=== PATIENT | female | born 1995 | race Caucasian/White ===

== ENCOUNTER 2023-05-20 08:00 | Outpatient (CLI) | payer BC, OTHER ==
[2023-05-20 17:25] LABS: BILIRUBIN,URINE NEGATIVE (NEGATIVE); GLUCOSE, URINE (UA) NEGATIVE (NEGATIVE); KETONES,URINE (UA) NEGATIVE (NEGATIVE); LEUKOCYTE ESTERASE, URINE NEGATIVE (NEGATIVE); NITRITE,URINE NEGATIVE (NEGATIVE); OCCULT BLOOD,URINE NEGATIVE (NEGATIVE); PH,URINE 7.5 PH (5.0-7.5); PROTEIN,URINE NEGATIVE (NEGATIVE); UROBILINOGEN,URINE 0.2 (NORMAL) E.U./dL (NORMAL)
[2023-05-20 17:32] LABS: CLARITY,URINE CLEAR (CLEAR)
[2023-05-20 17:45] LABS: BACTERIA,URINE None Seen /HPF (None Seen); RBC,URINE None Seen /HPF (0-5); SQUAMOUS EPITHELIAL CELL,UR RARE Squamous (<= Few); WBC,URINE 0-3 /HPF (0-5)
== END 2023-05-20 23:59 | disposition home or self-care (01) ==
LOC: LAB.WC 08:00
PROVIDERS: ATTEND Obstetrics & Gynecology
DX: Z34.00 Encounter for supervision of normal first pregnancy, unspecified trimester (principal)
CPT/HCPCS: 81001; 87086

== ENCOUNTER 2023-06-05 11:46 | Outpatient (CLI) | payer OTHER ==
--- NOTE | 2023-06-05 16:08 | Ultrasound Report ---
PROCEDURE: OB 1st Trimester INDICATIONS: POSITIVE TEST OUTSIDE/PRIOR DATING DATA: Last menstrual period (LMP): 04/08/2023. LMP-based estimated date of delivery (GUERRERO): 01/13/2024. First dating scan (date and location): 06/05/2023. Estimated date of delivery (GUERRERO) from first dating scan: 01/13/2024. TECHNIQUE: Real-time scanning was performed of the fetus and maternal pelvic organs, with image documentation. COMPARISON: None. FINDINGS: Intrauterine gestational sac present. Embryo: Single living intrauterine gestation with estimated sonographic gestational age of approxima tely 8 weeks and 2 days based off crown-rump length measurement of approximately 1.77 cm. Heart rate: 162 bpm. Other: Small perigestational fluid collection. Normal yolk sac. Measurement variability in dating: +/- 4 weeks by LMP, +/- 7 days by mean sac diameter (use before 6 weeks gestation if crown-rump length not able to be measured), +/- 5 days by crown-rump length (6-12 weeks gestation). Maternal organs: Ovaries appear within normal limits. There is a right corpus luteal cyst measuring 1.5 cm. Maternal cervix appears long and closed. IMPRESSION: Single living intrauterine gestation with estimated sonographic gestational age of approximately 8 we eks and 2 days based off crown-rump length measurement. Estimated date of delivery is approximately . Small perigestational hemorrhage. Reviewed by: Paulino Hatch MD on 06/05/2023 4:07 PM PDT Approved by: Paulino Hatch MD on 06/05/2023 4:07 PM PDT Station ID: [id number]
== END 2023-06-05 11:47 | disposition home or self-care (01) ==
LOC: DI 11:46
PROVIDERS: ATTEND Obstetrics & Gynecology
DX: O20.8 Other hemorrhage in early pregnancy (principal); Z3A.08 8 weeks gestation of pregnancy

== ENCOUNTER 2023-07-01 12:06 | Outpatient (CLI) | payer OTHER ==
[2023-07-01 13:13] LABS: ALBUMIN 3.8 g/dL (3.2-5.5); ALBUMIN/GLOBULIN RATIO 1.5 (1.0-2.2); BILIRUBIN,TOTAL 0.4 mg/dL (0.2-1.0); CALCIUM 9.4 mg/dL (8.5-10.3); CREATININE 0.5 mg/dL (0.6-1.3); POTASSIUM 3.7 mmol/L (3.5-4.5); TOTAL PROTEIN 6.3 g/dL (6.4-8.9)
[2023-07-01 18:52] LABS: CHLAMYDIA TRACHOMATIS DNA NEGATIVE (NEGATIVE); NEISSERIA GONORRHOEAE DNA NEGATIVE (NEGATIVE); TRICHOMONAS VAGINALIS DNA NEGATIVE (NEGATIVE)
== END 2023-07-01 12:07 | disposition home or self-care (01) ==
LOC: LAB 12:06
PROVIDERS: ATTEND Obstetrics & Gynecology
DX: Z34.00 Encounter for supervision of normal first pregnancy, unspecified trimester (principal); Z36.9 Encounter for antenatal screening, unspecified; Z3A.12 12 weeks gestation of pregnancy
CPT/HCPCS: 36415; 80053; 87491; 87591; 87661

== ENCOUNTER 2023-07-29 16:26 | Outpatient (CLI) | payer OTHER ==
[2023-07-29 16:43] LABS: BASOPHILS % (AUTO) 0.2 %; EOSINOPHILS # (AUTO) 0.3 10^3/uL (0.0-0.7); EOSINOPHILS % (AUTO) 2.2 %; HCT - HEMATOCRIT 38.4 % (37.0-47.0); HGB - HEMOGLOBIN 13.3 g/dL (12.0-16.0); LYMPHOCYTES # (AUTO) 2.7 10^3/uL (1.5-3.5); LYMPHOCYTES % (AUTO) 23.4 %; MEAN CORPUSCULAR HGB CONC 34.6 g/dL (32.0-36.0); MEAN CORPUSCULAR VOLUME 92.3 fL (81.0-99.0); MONOCYTES # (AUTO) 0.9 10^3/uL (0.0-1.0); MONOCYTES % (AUTO) 7.7 %; NEUTROPHILS # (AUTO) 7.5 10^3/uL (1.5-6.6); NEUTROPHILS % (AUTO) 66.1 %; PLT - PLATELET COUNT 243 10^3/uL (130-450); RED BLOOD COUNT 4.16 10^6/uL (4.20-5.40); RED CELL DISTRIBUTION WIDTH 12.7 % (12.0-15.0); WHITE BLOOD COUNT 11.4 x10^3/uL (4.8-10.8)
[2023-07-30 08:10] LABS: RPR Non Reactive (Non Reactive)
[2023-07-30 10:09] LABS: VARICELLA-ZOSTER AB IGG 784 index (Immune >165)
[2023-07-30 11:11] LABS: HBsAG SCREEN Negative (Negative)
== END 2023-07-29 16:27 | disposition home or self-care (01) ==
LOC: LAB 16:26
PROVIDERS: ATTEND Obstetrics & Gynecology
DX: Z34.00 Encounter for supervision of normal first pregnancy, unspecified trimester (principal); Z36.89 Encounter for other specified antenatal screening; Z36.0 Encounter for antenatal screening for chromosomal anomalies
CPT/HCPCS: 36415; 82105; 85025; 86592; 86762; 86787; 86803; 86850; 86900; 86901; 87340; 87389

== ENCOUNTER 2023-08-27 14:58 | Outpatient (CLI) | payer OTHER ==
--- NOTE | 2023-08-27 21:45 | Ultrasound Report ---
PROCEDURE: OB Anatomy Scan INDICATIONS: SUPERVISION OF OUTSIDE/PRIOR DATING DATA: Last menstrual period (LMP): 04/08/2023. LMP-based estimated date of delivery (GUERRERO): 01/13/2024. First dating scan (date and location): 06/05/2023. Estimated date of delivery (GUERRERO) from first dating scan: 01/13/2024. TECHNIQUE: Real-time scanning was performed of the fetus, with image documentation and biometric measurements. Endovaginal scanning: Not performed. COMPARISON: 06/05/2023 FINDINGS: General: A single living intrauterine gestation is present. Presentation: Breech Placenta: Placental position is fundal, without previa. Amniotic fluid index: 12.8 cm, within normal limits for gestational age. Largest pocket measured 5. 0 cm heart rate: 140 beats per minute. Maternal cervical canal: 3.5 cm long; normal length is 2.5 cm or more. biometrics: Biparietal diameter: 4.94 cm: 21 weeks and 0 days (81st percentile) Head circumference: 18.52 cm: 20 weeks and 6 days (75th percentile) Abdominal circumference: 15.86 cm: 21 weeks and 0 days (73rd percentile) Femur length: 3.26 cm: 20 weeks and 1 day (43rd percentile) Estimated gestational age from initial scan: 20 weeks and 1 day Composite gestational age from present scan: 20 weeks and 4 days Estimated weight and percentile: 368 g which correlates with the 74th percentile for gestation al age. Measurement variability in biometric dating: +/- 10 days from 12-20 weeks gestation, +/- 2 weeks from 20-30 weeks gestation, +/- 3 weeks at 30 weeks gestation or later. Anatomic survey: Neuro: Ventricles are normal at less than 10 mm. Cisterna magna is normal at 3-11 mm. Cerebellum i s normal in size and morphology. Nuchal skin fold: Normal at less than 6 mm between 14 and 20 weeks gestational age. Face: Nose and lips, facial profile are normal. Spine: No evidence for spina bifida. Heart: 4-chambered heart is present, with normal ventricular outflow tracts. Diaphragm: Diaphragm is intact. Stomach: Left-sided stomach is present. Kidneys: No hydronephrosis. Normal is less than 5 mm in 2nd trimester, less than 7 mm in 3rd trimester. Cord: 3 vessel cord has orthotopic insertion. Bladder: Normal in size. Extremities: All 4 extremities are visualized. IMPRESSION: Single living intrauterine gestation with estimated sonographic gestational age of approximately 20 w eeks and 4 days versus approximately 20 weeks and 1 day by initial ultrasound. Normal interval growth has occurred. Estimated weight of approximately 368 g which correlates with the 74th percentil e for gestational age. Normal second trimester anatomy screening survey. Reviewed by: Paulino Ennis MD on 08/27/2023 9:43 PM PDT Approved by: Paulino Ennis MD on 08/27/2023 9:43 PM PDT Station ID: [id number]
== END 2023-08-27 14:59 | disposition home or self-care (01) ==
LOC: DI 14:58
PROVIDERS: ATTEND Obstetrics & Gynecology
DX: Z34.02 Encounter for supervision of normal first pregnancy, second trimester (principal)

== ENCOUNTER 2023-09-30 08:05 | Outpatient (CLI) | payer OTHER | END 2023-09-30 08:06 | disposition home or self-care (01) | LOC: LAB.S 08:05 | PROVIDERS: ATTEND Obstetrics & Gynecology | DX: Z34.00 Encounter for supervision of normal first pregnancy, unspecified trimester (principal) ==

== ENCOUNTER 2023-10-02 08:22 | Outpatient (CLI) | payer OTHER ==
[2023-10-02 09:32] LABS: HCT - HEMATOCRIT 36.5 % (37.0-47.0); HGB - HEMOGLOBIN 12.4 g/dL (12.0-16.0); MEAN CORPUSCULAR HEMOGLOBIN 32.9 pg (27.0-31.0); MEAN CORPUSCULAR VOLUME 96.8 fL (81.0-99.0); RED BLOOD COUNT 3.77 10^6/uL (4.20-5.40); RED CELL DISTRIBUTION WIDTH 13.1 % (12.0-15.0); WHITE BLOOD COUNT 10.9 x10^3/uL (4.8-10.8)
== END 2023-10-02 08:23 | disposition home or self-care (01) ==
LOC: LAB 08:22
PROVIDERS: ATTEND Obstetrics & Gynecology
DX: Z34.00 Encounter for supervision of normal first pregnancy, unspecified trimester (principal)
CPT/HCPCS: 36415; 82950; 85027

== ENCOUNTER 2023-11-13 16:08 | Outpatient (CLI) | payer OTHER ==
--- NOTE | 2023-11-13 21:25 | Ultrasound Report ---
PROCEDURE: OB Follow up INDICATIONS: EXCESSIVE WEIGHT GAIN IN OUTSIDE/PRIOR DATING DATA: Last menstrual period (LMP): 04/08/2023. LMP-based estimated date of delivery (GUERRERO): 01/13/2024. First dating scan (date and location): 06/05/2023. Estimated date of delivery (GUERRERO) from first dating scan: 01/13/2024. The below data below was generated using the ultrasound GUERRERO of 01/13/2024 TECHNIQUE: Real-time scanning was performed of the fetus, with image documentation and biometric measurements. Endovaginal scanning: Not performed. COMPARISON: 08/27/2023 FINDINGS: General: A single living intrauterine gestation is present. Presentation: Vertex Placenta: Placental position is fundal, without previa. Amniotic fluid index: 14.3 cm, 49 percentile for gestational age. heart rate: 140 beats per minute. Maternal cervical canal: 4.7 cm long; normal length is 2.5 cm or more. biometrics: Biparietal diameter: 8.28 cm, 33 weeks 2 days, 91 percentile Head circumference: 30.7 cm, 34 weeks 2 days, 88 percentile Abdominal circumference: 28.6 cm, 32 weeks 5 days, 84 percentile Femur length: 5.76 cm, 30 weeks 1 day, 11 percentile Estimated gestational age from initial scan: 31 weeks 2 days Composite gestational age from present scan: 32 weeks 4 days Estimated weight and percentile: 1908 g, 67th percentile Measurement variability in biometric dating: +/- 10 days from 12-20 weeks gestation, +/- 2 weeks from 20-30 weeks gestation, +/- 3 weeks at 30 weeks gestation or more. Other: Not applicable. IMPRESSION: Single living intrauterine at 31 weeks 2 days, GUERRERO of 01/13/2024. Estimated weight of 1908 g, 67th percentile. Reviewed by: Ramsey Yao MD on 11/13/2023 9:24 PM PDT Approved by: Ramsey Yao MD on 11/13/2023 9:24 PM PDT Station ID: [id number]
== END 2023-11-13 16:09 | disposition home or self-care (01) ==
LOC: DI 16:08
PROVIDERS: ATTEND Obstetrics & Gynecology
DX: O26.03 Excessive weight gain in pregnancy, third trimester (principal); Z3A.31 31 weeks gestation of pregnancy

== ENCOUNTER 2023-12-25 15:11 | Inpatient (IN) ==
[2023-12-25 15:55] LABS: BASOPHILS % (AUTO) 0.2 %; EOSINOPHILS # (AUTO) 0.3 10^3/uL (0.0-0.7); EOSINOPHILS % (AUTO) 2.2 %; HCT - HEMATOCRIT 40.6 % (37.0-47.0); HGB - HEMOGLOBIN 13.6 g/dL (12.0-16.0); LYMPHOCYTES # (AUTO) 2.9 10^3/uL (1.5-3.5); LYMPHOCYTES % (AUTO) 25.2 %; MEAN CORPUSCULAR HEMOGLOBIN 31.9 pg (27.0-31.0); MEAN CORPUSCULAR HGB CONC 33.5 g/dL (32.0-36.0); MEAN CORPUSCULAR VOLUME 95.3 fL (81.0-99.0); MEAN PLATELET VOLUME 11.5 fL (7.9-10.8); MONOCYTES # (AUTO) 0.9 10^3/uL (0.0-1.0); NEUTROPHILS # (AUTO) 7.3 10^3/uL (1.5-6.6); NEUTROPHILS % (AUTO) 63.7 %; PLT - PLATELET COUNT 185 10^3/uL (130-450); RED BLOOD COUNT 4.26 10^6/uL (4.20-5.40); RED CELL DISTRIBUTION WIDTH 13.5 % (12.0-15.0); WHITE BLOOD COUNT 11.5 x10^3/uL (4.8-10.8)
[2023-12-25 16:23] LABS: ALBUMIN 3.5 g/dL (3.2-5.5); ALBUMIN/GLOBULIN RATIO 1.3 (1.0-2.2); BILIRUBIN,TOTAL 0.5 mg/dL (0.2-1.0); CALCIUM 9.3 mg/dL (8.5-10.3); CREATININE 0.6 mg/dL (0.6-1.3); POTASSIUM 3.7 mmol/L (3.5-4.5); TOTAL PROTEIN 6.3 g/dL (6.4-8.9)
[2023-12-25 16:23] LABS: CREATININE,URINE 40.4 mg/dL; PROTEIN/CREATININE RATIO,URINE 0.2 (<=0.2)
[2023-12-25] MEDS: diphenhydrAMINE 25 MG CAPSULE PO ONE (16:32)
[2023-12-25] MEDS: METOCLOPRAMIDE 10 MG TABLET PO ONE (16:32)
[2023-12-25] MEDS: ACETAMINOPHEN 325 MG TABLET PO ONE (16:54)
[2023-12-25] MEDS: oxyCODONE 5 MG TABLET PO ONE (18:43)
[2023-12-25] MEDS: CYCLOBENZAPRINE 10 MG TABLET PO ONE (18:43)
[2023-12-25] MEDS ORDERED: miSOPROStoL 200 MCG TABLET BC PRN (20:15)
[2023-12-25] MEDS ORDERED: miSOPROStoL 200 MCG TABLET PR PRN (20:15)
[2023-12-25] MEDS ORDERED: OXYTOCIN/SODIUM CHLORIDE 500 ML IV PRN (20:15)
[2023-12-25] MEDS ORDERED: TRANEXAMIC ACID IN NACL 1,000 MG/100 ML BAG IV PRN (20:15)
[2023-12-25] MEDS ORDERED: ONDANSETRON ODT 4 MG TABLET TL PRN (20:20)
[2023-12-25] MEDS ORDERED: fentaNYL 100 MCG/2 ML VIAL IVP PRN (20:20)
[2023-12-25] MEDS ORDERED: MAGNESIUM SULFATE 2 GRAM 0 GM/0 ML BAG IV ONE (20:28)
[2023-12-25] MEDS ORDERED: MAGNESIUM SULFATE IN WATER 20 GM/500 ML IV.SOLN IV ONE (20:28)
[2023-12-25] MEDS ORDERED: LACTATED RINGERS 1,000 ML ONE (20:28)
[2023-12-25] MEDS ORDERED: MAGNESIUM SULFATE 4 GRAM 4 GM/50 ML BAG IV ONE (20:28)
--- NOTE | 2023-12-25 20:34 | HISTORY & PHYSICAL EXAMINATION ---
Admit History Visit Reason Visit Reason: Other (headache) Smoking Status: Never smoker Other Maternal History Other Maternal History: Cristal Laureano is a 27 yo at 37w2d who is being admitted for IOL for preeclampsia with severe features. Cristal called this morning to clinic with persistent headache, did not improve with tylenol, rest, hydration at home so she presented to triage this afternoon. In triage, headache persisted without any improvement after receiving additional tylenol, reglan, benadryl, oxycodone, and flexeril. In addition, she has had multiple mild range BPs. Admission for IOL recommended. She reports intermittent spots in her vision. No upper abdminal pain. Reported SOB earlier in the day but this has resolved. Has has periods of cramping in triage, no VB or LOF. + FM. She had a growth US on 12/22, EFW 3485g, 90%tile, PRAMOD 23.8, vertex. 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 FOB: Justice Stovall. 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 he is 6'8". mom lives in [place]. Excessive maternal weight gain, 67%tile @ 31 wks (BPD, HC, AC 84-91%tile), follow up growth for 36wk ordered Anxiety: Previously on SSRIs and buspirone, but has not been on these for some time. They did not seem to work for her. better with yoga, breathing, walking. ADHD: Previously tried Vyvanse and Adderall. Stopped w/. Headaches: on and off; pt mom had preE and was induced wtih patient at 32 weeks. Started baby aspirin ~ 28wk. Vulvodynia: Had bad reaction trying lidocaine previously. Does not desire now. Fasting uncomfortable, but tolerated well. KIM: 24 weeks. PT ordered 09/22. Pre- Weight: 151 BMI: 24.56 Blood type: A+ Antibody: Negative CBC: H/H 13.3/38.4 plt 243 RUB:Immune VZV:Immune HBsAg: Negative HepC: NR RPR/AB-EIA: NR HIV:NR PAP: 07/01/23 normal GC/CT: 07/01/23 negative HSV: denies Genetic testing:NIPT- negative. AFP- Negative FAS:scheduled for 08/26 Placenta:fundal w/o previa Cord:3VC PRAMOD:12.8cm EFW:368g 74th%ile 50gm OGCT: 104 TDAP:10/20 RSV and influenza vaccines 12/02/23. Breast Pump:10/20 3rd trimester PLT 190 HGB 12.4 HCT 36.5 RPR: declines recheck GBS: neg Delivery plan: MOD: Contraception: undecided HPI Current : Current EDU 01/13/24 Gestation 37 Weeks and 2 Days Para 0 Vital Signs Pulse Rate 87 12/25/23 15:23 Respiratory Rate 12 12/25/23 15:23 Blood Pressure 139/81 H 12/25/23 15:23 Pulse Rate 87 12/25/23 15:23 Respiratory Rate 12 12/25/23 15:23 Blood Pressure 139/81 H 12/25/23 15:23 NST Procedure NST Procedure: NST Procedure Start Date 12/25/23 Start Time 17:00 Stop Time 17:20 Vibroacoustic Stimulation Used No Results and Plan Findings/Impression: Reactive. Category 1 Meds/Allgy Home Medications Ambulatory Orders Medication Instructions Recorded Confirmed aspirin 81 mg tablet,delayed 81 mg PO QDAY 12/23/23 12/23/23 release (Adult Aspirin Regimen) prenat.vits,shantal,ptj-[id number]-[id number] tab PO 12/23/23 12/23/23 Allergies Allergies Allergy/AdvReac Type Severity Reaction Status Date / Time No Known Drug Allergies Allergy Verified 12/23/23 15:47 COUNT INCLUDES THE [facility] Surgical History Surgical History (Updated 12/23/23 @ 15:49 by Maliha Drummond MA) History of hymenectomy 2013 Hx of tonsillectomy age 8 History of appendectomy Social History Social History Smoking Status: Never smoker Number of Years Smoked: 0 Do you dip or chew tobacco?: No Patient requests smoking cessation consult: No Initiate information on smoking cessation: No Relationship: History of Abuse: No Physical Abdominal Exam Vital Signs: Pulse Resp BP 87 12 139/81 H 12/25/23 15:23 12/25/23 15:23 12/25/23 15:23 Multiple mild range BPs, documented in Centricity. No severe range BPs. Presentation Presentation: positive Vertex (by bedside US) Vaginal Exam Dilation (in cm): fingertip Station: positive -3 Cervical Position: positive Posterior Speculum Exam Speculum Exam Performed: positive No Other Notes Labor Progress Note/Additional Text: Gen: NAD, has been in dark room all afternoon. Chest: RRR, lungs CTAB without crackles, no increased work of breathing Abd: gravid, non tender. EFW 3600. Ext: 1+ LE edema, 2+ LE reflexes Plan for Labor Plan For Labor I expect patient to be DC'd or transferred within 96 hours.: Yes Plan for Labor: IOL with PO misoprostol. Conclusion/Plan Problem List (1) Preeclampsia: (2) Maternal excessive weight gain: (3) Anxiety: (4) Vulvodynia: (5) ADHD: (6) Supervision of normal first : Plan Concern for preeclampsia with severe features in the setting of mild range BPs and persistent severe headache that has not improved with treatment, vision changes. No lab abnormalities at this time. Recommended admission for IOL and she is in agreement. Consent reviewed and signed. Recommended magnesium sulfate for seizure prophylaxis and she does agree. Discussed need for close monitoring of UOP. Plan for repeat CBC, CMP in the morning. Plan for IOL with PO misoprostol. GBS neg. Pain management per her request, OK for epidural when she wants it. Lab Results Lab results reviewed: Yes 12/25/23 Unknown 12/25/23 15:50
[2023-12-25] MEDS: MAGNESIUM SULFATE 4 GRAM 4 GM/50 ML BAG IV ONE (20:59)
[2023-12-25] MEDS: LACTATED RINGERS 1,000 ML IV SCH (21:00)
[2023-12-25] MEDS ORDERED: diphenhydrAMINE 25 MG CAPSULE PO SCH (21:00)
[2023-12-25] MEDS: MAGNESIUM SULFATE IN WATER 20 GM/500 ML IV.SOLN IV SCH (21:31)
[2023-12-25] MEDS: miSOPROStoL 100 MCG TABLET PO SCH (21:49)
[2023-12-25] MEDS: oxyCODONE 5 MG TABLET PO PRN (22:54)
[2023-12-25] MEDS: ACETAMINOPHEN 325 MG TABLET PO PRN (22:54)
[2023-12-26] MEDS: ZOLPIDEM 5 MG TABLET PO PRN (00:12)
[2023-12-26] MEDS: CYCLOBENZAPRINE 10 MG TABLET PO PRN (11:32)
--- NOTE | 2023-12-26 12:45 | PROVIDER PROGRESS NOTE ---
Labor Progress Note Labor Progress Note Labor Progress Note/Additional Text: S: She reports headache increasing in severity again, now 09/22. Recently received oxycodone and flexeril by RN, declined tylenol and reglan. Feeling more cramping. O: VS reviewed in Centricity Gen: NAD Chest: RRR, lungs CTAB without crackles, no increased work of breathing Abd: gravid, non tender Ext: 2+ pedal edema I/O reviewed, UOP excellent FHTs: 130s bmp baseline, + accel, - decel, mod variability [place]: 2-6 min Cat 1 A/P: 27 yo at 37w3d undergoing IOL with preeclampsia with severe features. Plan for SVE prior to next dose of misoprostol. BPs normal to mild range. Continue magnesium sulfate. Plan for repeat CBC, CMP this afternoon. Can try tylenol/reglan if headache not improved. Flores Rich MD
--- NOTE | 2023-12-26 12:50 | HISTORY & PHYSICAL EXAMINATION ---
Admit History Smoking Status: Never smoker HPI Current : Current EDU 01/13/24 Gestation 37 Weeks and 2 Days Para 0 Vital Signs Pulse Rate 87 12/25/23 15:23 Respiratory Rate 12 12/25/23 15:23 Blood Pressure 139/81 H 12/25/23 15:23 Temperature 97.7 F 12/25/23 22:10 Pulse Rate 98 H 12/25/23 22:10 Respiratory Rate 18 12/25/23 22:10 Blood Pressure 135/80 H 12/25/23 22:10 NST Procedure NST Procedure: NST Procedure Start Date 12/25/23 Start Time 17:00 Stop Time 17:20 Vibroacoustic Stimulation Used No Meds/Allgy Home Medications Ambulatory Orders Medication Instructions Recorded Confirmed aspirin 81 mg tablet,delayed 81 mg PO QDAY 12/23/23 12/23/23 release (Adult Aspirin Regimen) prenat.vits,shantal,uuw-sdap-donhs tab PO 12/23/23 12/23/23 Allergies Allergies Allergy/AdvReac Type Severity Reaction Status Date / Time No Known Drug Allergies Allergy Verified 12/23/23 15:47 [facility] Surgical History Surgical History (Updated 12/23/23 @ 15:49 by Maliha Drummond MA) History of appendectomy History of hymenectomy 2014 Hx of tonsillectomy age 8 Social History Social History Smoking Status: Never smoker Number of Years Smoked: 0 Do you dip or chew tobacco?: No Patient requests smoking cessation consult: No Initiate information on smoking cessation: No Relationship: History of Abuse: No Physical Abdominal Exam Vital Signs: Temp Pulse Resp BP 97.7 F 98 H 18 135/80 H 12/25/23 22:10 12/25/23 22:10 12/25/23 22:10 12/25/23 22:10 Conclusion/Plan Problem List (1) Preeclampsia: (2) Maternal excessive weight gain: (3) Anxiety: (4) Vulvodynia: (5) ADHD: (6) Supervision of normal first : Plan Concern for preeclampsia with severe features in the setting of mild range BPs and persistent severe headache that has not improved with treatment, vision changes. No lab abnormalities at this time. Recommended admission for IOL and she is in agreement. Consent reviewed and signed. Recommended magnesium sulfate for seizure prophylaxis and she does agree. Discussed need for close monitoring of UOP. Plan for repeat CBC, CMP in the morning. Plan for IOL with PO misoprostol. GBS neg. Pain management per her request, OK for epidural when she wants it. Lab Results Lab results reviewed: Yes 12/25/23 Unknown 12/25/23 15:50
[2023-12-26] MEDS: ACETAMINOPHEN 325 MG TABLET PO PRN (14:01)
[2023-12-26] MEDS: METOCLOPRAMIDE 10 MG TABLET PO PRN (14:01)
[2023-12-26 16:36] LABS: BASOPHILS % (AUTO) 0.3 %; EOSINOPHILS # (AUTO) 0.3 10^3/uL (0.0-0.7); EOSINOPHILS % (AUTO) 2.8 %; HCT - HEMATOCRIT 37.8 % (37.0-47.0); HGB - HEMOGLOBIN 12.9 g/dL (12.0-16.0); LYMPHOCYTES # (AUTO) 2.3 10^3/uL (1.5-3.5); LYMPHOCYTES % (AUTO) 21.9 %; MEAN CORPUSCULAR HEMOGLOBIN 32.4 pg (27.0-31.0); MEAN CORPUSCULAR HGB CONC 34.1 g/dL (32.0-36.0); MEAN PLATELET VOLUME 11.9 fL (7.9-10.8); NEUTROPHILS % (AUTO) 65.3 %; PLT - PLATELET COUNT 181 10^3/uL (130-450); RED BLOOD COUNT 3.98 10^6/uL (4.20-5.40); RED CELL DISTRIBUTION WIDTH 13.5 % (12.0-15.0); WHITE BLOOD COUNT 10.7 x10^3/uL (4.8-10.8)
[2023-12-26 16:54] LABS: ALBUMIN 3.3 g/dL (3.2-5.5); ALBUMIN/GLOBULIN RATIO 1.3 (1.0-2.2); BILIRUBIN,TOTAL 0.3 mg/dL (0.2-1.0); CALCIUM 7.8 mg/dL (8.5-10.3); CREATININE 0.5 mg/dL (0.6-1.3); POTASSIUM 3.3 mmol/L (3.5-4.5); TOTAL PROTEIN 5.9 g/dL (6.4-8.9)
--- NOTE | 2023-12-26 18:12 | PROVIDER PROGRESS NOTE ---
Labor Progress Note Labor Progress Note Labor Progress Note/Additional Text: I was called by RN due to concern that baby had changed position, now getting FHTs in the upper abdomen. Limited transabdominal US performed, breech presentation noted. SVE: external os fingertip, internal os closed, softer, more mid position. VS reviewed in Centricity I/O reviewed, UOP excellent FHTs: 120s bmp baseline, + accel, - decel, mod variability [place]: 2-7 min Cat 1 Labs reviewed: CBC, CMP A/P: 27 yo at 37w3d undergonig IOL with preeclampsia with severe features. Baby has flipped to breech presentation. I have discussed options for next steps in detail with Cristal and family including risks/benefits of proceeding with delivery now vs attempt at ECV. We reviewed risks of ECV including rupture of membranes, cord prolapse, failure, success with spontaneous re-version to non-cephalic presentation, placental abruption, bradycardia necessitating emergency delivery. Discussed even if successful, overall there is increased risk for delivery. We have also reviewed risks of prolonging delivery since we are inducing for severe preeclampsia. We have discussed increased risk for bleeding with prolonged use of magnesium and pitocin, and potential for worsening preeclampsia. Currently, blood pressures have remained normal to mild range and repeat labs this afternoon are normal. We have discussed risks of surgery included with delivery. At this time, Cristal would prefer to avoid delivery and requests attempt at ECV. We discussed epidural placement in case of need for emergency of if ECV is unsuccessful. If successful, will plan for pitocin with AROM once able. I have discussed with anesthesia, who is currently in a case in the OR, and will tentatively be available at 8pm. Flores Rich MD
--- NOTE | 2023-12-26 19:40 | ANESTHESIA PROCEDURE NOTE ---
Pre-Anesthesia VS, & Labs Diagnosis Surgical Diagnosis:: external cephalic version, labor induction Procedure Procedure: epidural Vitals Vital Signs: Temp Pulse Resp BP 36.5 C 98 H 18 135/80 H 12/25/23 22:10 12/25/23 22:10 12/25/23 22:10 12/25/23 22:10 NPO NPO: Other Last Fluid Intake: clears at 1830 Is Patient ?: Yes Lab Results Current Lab Results: Laboratory Tests 12/26/23 16:24: WBC 10.7, RBC 3.98 L, Hgb 12.9, Hct 37.8, MCV 95.0, MCH 32.4 H, MCHC 34.1, RDW 13.5, Plt Count 181, MPV 11.9 H, Neut # (Auto) 7.0 H, Lymph # (Auto) 2.3, [place] # (Auto) 1.0, Eos # (Auto) 0.3, Baso # (Auto) 0.0, Absolute Nucleated RBC 0.00, Nucleated RBC % 0.0, Sodium 134 L, Potassium 3.3 L, Chloride 106, Carbon Dioxide 21, Anion Gap 7.0, BUN 4 L, Creatinine 0.5 L, Estimated GFR (MDRD) 148, Glucose 106 H, Calcium 7.8 L, Total Bilirubin 0.3, AST 11, ALT 7 L, Alkaline Phosphatase 120, Total Protein 5.9 L, Albumin 3.3, Globulin 2.6, Albumin/Globulin Ratio 1.3 12/25/23 : WBC 11.5 H, RBC 4.26, Hgb 13.6, Hct 40.6, MCV 95.3, MCH 31.9 H, MCHC 33.5, RDW 13.5, Plt Count 185, MPV 11.5 H, Neut # (Auto) 7.3 H, Lymph # (Auto) 2.9, [place] # (Auto) 0.9, Eos # (Auto) 0.3, Baso # (Auto) 0.0, Absolute Nucleated RBC 0.00, Nucleated RBC % 0.0 12/25/23 20:45: Blood Type A POSITIVE, Antibody Screen NEGATIVE 12/25/23 15:50: Sodium 136, Potassium 3.7, Chloride 106, Carbon Dioxide 22, Anion Gap 8.0, BUN 5 L, Creatinine 0.6, Estimated GFR (MDRD) 120, Glucose 79, Calcium 9.3, Total Bilirubin 0.5, AST 11, ALT 7 L, Alkaline Phosphatase 103, T otal Protein 6.3 L, Albumin 3.5, Globulin 2.8, Albumin/Globulin Ratio 1.3 12/26/23 16:24 12/26/23 16:24 Meds/Allgy Home Medications Ambulatory Orders Medication Instructions Recorded Confirmed aspirin 81 mg tablet,delayed 81 mg PO QDAY 12/23/23 12/23/23 release (Adult Aspirin Regimen) prenat.vits,shantal,sgw-ougq-eflet tab PO 12/23/23 12/23/23 Allergies Allergies Allergy/AdvReac Type Severity Reaction Status Date / Time No Known Drug Allergies Allergy Verified 12/23/23 15:47 [facility] Surgical History Surgical History (Updated 12/23/23 @ 15:49 by Maliha Drummond MA) History of hymenectomy 2013 Hx of tonsillectomy age 8 History of appendectomy Social History Social History Smoking Status: Never smoker Number of Years Smoked: 0 Do you dip or chew tobacco?: No Patient requests smoking cessation consult: No Initiate information on smoking cessation: No Relationship: History of Abuse: No Anesthesia Exam (Expanded) Exam General: Alert and Oriented x3 Dental: WNL Mallampati classification: II Thyromental Distance: greater than 6 cm Respiratory: Lungs clear Cardiovascular: Regular rate Plan Plan Anesthesia Type: Epidural Consent for Procedure(s) Verified and Reviewed: Yes Code Status: Attempt Resuscitation ASA Classification ASA classification: 3-Severe systemic disease Is this case an emergency?: Yes (there is urgency due to worsening pre-eclampsia per surgeon)
[2023-12-26] MEDS ORDERED: LIDOCAINE 2%-EPI 1:100000 20 ML MDV ONE (19:51)
[2023-12-26] MEDS ORDERED: BUPIVACAINE 0.25% PF 10 ML VIAL ONE (19:51)
[2023-12-26] MEDS ORDERED: ROPIVACAINE 0.2% 200 MG/100 ML BAG EP ONE (19:51)
[2023-12-26] MEDS ORDERED: TERBUTALINE 1 MG/ML VIAL SUBQ ONE (20:32)
[2023-12-26] MEDS ORDERED: ePHEDrine 50 MG/ML VIAL IVP ONE (20:32)
[2023-12-26] MEDS: TERBUTALINE 1 MG/ML VIAL SUBQ ONE (20:47)
[2023-12-26] MEDS ORDERED: ONDANSETRON 4 MG/2 ML VIAL IVP PRN (21:00)
[2023-12-26] MEDS ORDERED: diphenhydrAMINE INJ 50 MG/ML VIAL IVP PRN (21:00)
[2023-12-26] MEDS ORDERED: NALBUPHINE 10 MG/ML AMP IVP PRN (21:00)
[2023-12-26] MEDS ORDERED: LACTATED RINGERS 500 ML IV SCH (21:00)
[2023-12-26] MEDS ORDERED: NALOXONE 0.4 MG/ML VIAL IVP PRN (21:00)
[2023-12-26] MEDS ORDERED: METOCLOPRAMIDE 10 MG/2 ML VIAL IVP PRN (21:00)
[2023-12-26] MEDS: ePHEDrine 50 MG/ML VIAL IVP PRN (21:47)
--- NOTE | 2023-12-26 21:59 | PROCEDURE REPORT ---
Hospitalist Procedure Note Procedure Note Procedure Note: Procedure Note - ECV Consent for ECV was signed. Cristal comfortable after epidural placement. Bedside US confirmed breech presentation. Terbutaline was given. Forward roll was performed with assistance by CARLIN Jung, intermittently confir kishor progression with transabdominal US. FHTs checked during attempt and normal. Forward roll was successful and cephalic presentation confirmed. Abdominal binder was placed. Plan for 20 min of monitoring and if reassuring, will start pitocin. RN to repeat SVE in 4hrs or sooner PRN. Plan for AROM when able, will confirm presentation prior to AROM. Patient agrees with plan of care. Flores Rich MD
[2023-12-26] MEDS: ONDANSETRON 4 MG/2 ML VIAL IVP PRN (22:06)
[2023-12-26] MEDS: OXYTOCIN/SODIUM CHLORIDE 500 ML IV SCH (23:30)
[2023-12-27] MEDS: ROPIVACAINE 0.2% 200 MG/100 ML BAG EP PRN (06:15)
[2023-12-27 07:32] LABS: ALBUMIN 3.2 g/dL (3.2-5.5); ALBUMIN/GLOBULIN RATIO 1.3 (1.0-2.2); BILIRUBIN,TOTAL 0.5 mg/dL (0.2-1.0); CALCIUM 7.7 mg/dL (8.5-10.3); CREATININE 0.6 mg/dL (0.6-1.3); POTASSIUM 3.3 mmol/L (3.5-4.5); TOTAL PROTEIN 5.6 g/dL (6.4-8.9)
[2023-12-27 07:37] LABS: BASOPHILS % (AUTO) 0.3 %; EOSINOPHILS # (AUTO) 0.1 10^3/uL (0.0-0.7); EOSINOPHILS % (AUTO) 0.9 %; HCT - HEMATOCRIT 35.9 % (37.0-47.0); HGB - HEMOGLOBIN 12.1 g/dL (12.0-16.0); LYMPHOCYTES % (AUTO) 17.1 %; MEAN CORPUSCULAR HEMOGLOBIN 32.4 pg (27.0-31.0); MEAN CORPUSCULAR HGB CONC 33.7 g/dL (32.0-36.0); MEAN PLATELET VOLUME 11.8 fL (7.9-10.8); MONOCYTES # (AUTO) 0.9 10^3/uL (0.0-1.0); MONOCYTES % (AUTO) 7.4 %; NEUTROPHILS # (AUTO) 8.5 10^3/uL (1.5-6.6); NEUTROPHILS % (AUTO) 73.9 %; PLT - PLATELET COUNT 164 10^3/uL (130-450); RED BLOOD COUNT 3.74 10^6/uL (4.20-5.40); RED CELL DISTRIBUTION WIDTH 13.8 % (12.0-15.0); WHITE BLOOD COUNT 11.5 x10^3/uL (4.8-10.8)
--- NOTE | 2023-12-27 11:32 | PROVIDER PROGRESS NOTE ---
Labor Progress Note Labor Progress Note Labor Progress Note/Additional Text: S: Reports she was able to get some sleep last night. Headache improved somewhat overnight, but back this morning. Feeling a little better after receiving medication. Epidural in place, no pain with contractions. Denies CP, SOB. O: VS reviewed in Centricity Gen: NAD Chest: no increased work of breathing Abd: gravid, non tender Ext: 3+ pedal edema SVE: 04/04/ballotable, AROM performed with copious clear fluid I/O reviewed, UOP adequate FHTs: 130s bpm baseline, + accel, - decel, mod variability [place]: 2-8 min Cat 1 Labs reviewed: CBC, CMP A/P: 27 yo at 37w4d undergoing IOL with preeclampsia with severe features, s/p ECV last evening for malpresentation. On pitocin overnight, made change from closed to 1cm. This morning we discussed AROM and continued pitocin with alternative of cook balloon and pitocin. Do not feel that cook balloon is the best option given desire to expedite delivery in the setting of preeclampsia with severe features. Risks of AROM reviewed and she did consent to proceeding. Will continue pitocin. Plan for repeat SVE at 4pm. Flores Rich MD
--- NOTE | 2023-12-27 16:42 | PROVIDER PROGRESS NOTE ---
Labor Progress Note Labor Progress Note Labor Progress Note/Additional Text: S: Cristal feeling more uncomfortable with contractions. Reports headache is a little improved. Has been able to rest some this afternoon. O: VS reviewed in Centricity Gen: NAD Chest: no increased work of breathing Abd: gravid, non tender Ext: 3+ pedal edema SVE: 2/50/-3, softer and more midposition I/O reviewed, UOP adequate FHTs: 130s bpm baseline, + accel, - decel, mod variability [place]: 2-5 min, pitocin @ 28 Cat 1 Labs reviewed: no new labs A/P: - Progressing in latent labor. Continue pitocin augmentation. Plan for repeat SVE at 10pm. - BPs remain normal to mild range. Continue magnesium sulfate for seizure prophyalaxis. Plan for repeat labs in AM. Flores Rich MD
[2023-12-27] MEDS ORDERED: ePHEDrine 50 MG/ML VIAL IVP PRN (16:49)
--- NOTE | 2023-12-27 16:54 | ANESTHESIA PROCEDURE NOTE ---
Anesthesia Epidural Template Patient Report Patient Reports: positive Pain controlled Plan Plan: positive Continue current management (continuous rate increased to 12cc/hr with PCEA 6ccq10 minutes. BP boarderline hypertensive on magnesium.) Other Comments Other Comments: Patient has more discomfort on left upper abdomen, encouraged to lay with left side down and utilize PCEA as needed. Plan to continue induction and re- evaluate at [address].
[2023-12-27] MEDS ORDERED: CALCIUM GLUC 1,000MG/50ML-NACL 1,000 MG/50 ML BAG IV ONE (22:34)
[2023-12-27] MEDS ORDERED: OXYTOCIN 10 UNIT/ML VIAL IM PRN (22:34)
[2023-12-27] MEDS: CALCIUM CARBONATE CHEW 500 MG TABLET PO PRN (22:37)
--- NOTE | 2023-12-27 22:43 | PROVIDER PROGRESS NOTE ---
Labor Progress Note Labor Progress Note Labor Progress Note/Additional Text: S: Irene complains of being very hungry. Reports headache is about a 5/10, does get some relief with pain medications. No CP, SOB. Frustrated by slow progress. O: VS reviewed in [facility] Gen: NAD Chest: RRR, lungs CTAB without crackles , no increased work of breathing Abd: gravid, non tender Ext: 3+ pedal edema SVE: 3/50/-2 I/O reviewed, UOP excellent FHTs: 130s bpm baseline, + accel, - decel, mod variability [place]: 2-5, pitocin at 30 Cat 1 Labs reviewed: no new labs A/P: Continues to progress in latent labor. She has now been on pitocin for approximately 24hrs, has progress from closed to 3cm. Plan for 1 hr pitocin break and then will restart. Discussed repeat SVE approximately 6 hrs after restarting pitocin to assess progress. We have discussed it is reasonable to continue with induction for at least 12-18 hrs after AROM and on pitocin, currently at about 12 hrs s/p AROM. FHTs have been Cat 1 and Cristal stable with regards to severe preeclampsia. Understands she can also request delivery at any time. She would like to continue with induction at this time. Flores Rich MD
[2023-12-28 06:35] LABS: BASOPHILS % (AUTO) 0.2 %; EOSINOPHILS # (AUTO) 0.2 10^3/uL (0.0-0.7); EOSINOPHILS % (AUTO) 1.2 %; HCT - HEMATOCRIT 37.6 % (37.0-47.0); HGB - HEMOGLOBIN 12.7 g/dL (12.0-16.0); LYMPHOCYTES # (AUTO) 1.7 10^3/uL (1.5-3.5); LYMPHOCYTES % (AUTO) 13.1 %; MEAN CORPUSCULAR HEMOGLOBIN 32.3 pg (27.0-31.0); MEAN CORPUSCULAR HGB CONC 33.8 g/dL (32.0-36.0); MEAN CORPUSCULAR VOLUME 95.7 fL (81.0-99.0); MEAN PLATELET VOLUME 11.4 fL (7.9-10.8); MONOCYTES # (AUTO) 0.9 10^3/uL (0.0-1.0); MONOCYTES % (AUTO) 7.2 %; NEUTROPHILS # (AUTO) 10.2 10^3/uL (1.5-6.6); NEUTROPHILS % (AUTO) 77.9 %; PLT - PLATELET COUNT 158 10^3/uL (130-450); RED BLOOD COUNT 3.93 10^6/uL (4.20-5.40); RED CELL DISTRIBUTION WIDTH 13.6 % (12.0-15.0); WHITE BLOOD COUNT 13.1 x10^3/uL (4.8-10.8)
[2023-12-28 06:54] LABS: ALBUMIN 2.9 g/dL (3.2-5.5); ALBUMIN/GLOBULIN RATIO 1.2 (1.0-2.2); BILIRUBIN,TOTAL 0.6 mg/dL (0.2-1.0); CALCIUM 7.5 mg/dL (8.5-10.3); CREATININE 0.6 mg/dL (0.6-1.3); POTASSIUM 3.6 mmol/L (3.5-4.5); TOTAL PROTEIN 5.3 g/dL (6.4-8.9)
--- NOTE | 2023-12-28 07:11 | PROVIDER PROGRESS NOTE ---
Labor Progress Note Labor Progress Note Labor Progress Note/Additional Text: S: Able to sleep some last night. Headache about the same 07/23. Denies CP, SOB. Feeling more pressure. O: VS reviewed in Centricity Gen: NAD Chest: RRR Abd: gravid, non tender Ext: 3+ LE edema SVE unchanged, 50/-2 I/O reviewed, UOP remains excellent FHTs: 130s bpm baseline, + accel, - decel, mod variability [place]: 2-5 min Cat 1 Labs reviewed: CBC, CMP Plan: SVE remains unchanged. We had a long discussion regarding proceeding with delivery now for failed induction of labor vs giving more time. Risks reviewed again in detail. Cristal would like to continue pitocin for another 4 hrs and and reassess at 10AM. I think this is reasonable given pitocin break last night, contractions have just become more regular again here in the last few hours. 10 am will be the approximately 24hr francis s/p AROM with pitocin augmentation. She has significant edema, however, blood pressures remain stable, UOP excellent, and preeclampsia labs normal this AM. Flores Rich MD
[2023-12-28] MEDS ORDERED: LIDOCAINE 2%-EPI 1:100000 20 ML MDV ONE (09:21)
[2023-12-28] MEDS: CITRIC ACID/SODIUM CITRATE 15 ML UDC PO ONE (09:21)
[2023-12-28] MEDS ORDERED: fentaNYL 100 MCG/2 ML VIAL ONE ×2 (09:21→09:31)
[2023-12-28] MEDS ORDERED: MORPHINE PF 5 MG/10 ML VIAL ONE (09:30)
--- NOTE | 2023-12-28 09:30 | PROVIDER PROGRESS NOTE ---
Labor Progress Note Labor Progress Note Labor Progress Note/Additional Text: 27yo at 37.5w admitted 12/24 for IOL for preeclampsia, now day 4 of induction. She was induced with misoprostol, Pitocin, AROM. Epidural in place. ECV also performed shortly after admission for cephalic to breech position change. AROM 12/26 1000, no signs of infection. Informed consent for IUPC placement to monitor strength of contractions which she accepted. IUPC placed and /-2. Reviewed her induction and labor progress. We discussed that she is kimberly well on Pitocin 30mu. Reviewed head is still high and this induction will continue throughout the day and evening most likely. Due to lack of progress and prolonged rupture in setting of indication for induction she would like to proceed with primary section, informed consent obtained.
[2023-12-28] MEDS ORDERED: CARBOPROST TROMETHAMINE 250 MCG/ML VIAL IM ONE (09:33)
[2023-12-28] MEDS ORDERED: miSOPROStoL 200 MCG TABLET ONE (09:33)
[2023-12-28] MEDS: AZITHROMYCIN INJ 500 MG in SODIUM CHLORIDE 0.9% 250 ML IV ONE (10:00)
[2023-12-28] MEDS: ceFAZolin (2G) 2 GM in SODIUM CHLORIDE 0.9% MINIBAG 100 ML IV ONE (10:00)
[2023-12-28] MEDS ORDERED: PHENYLEPHRINE HCL 0.5 MG/5 ML AMPULE ONE (10:10)
[2023-12-28] MEDS ORDERED: OXYTOCIN/SODIUM CHLORIDE 500 ML IV ONE (10:13)
[2023-12-28] MEDS ORDERED: ONDANSETRON 4 MG/2 ML VIAL ONE (10:17)
[2023-12-28] MEDS ORDERED: DEXAMETHASONE 4 MG/ML VIAL ONE (10:17)
[2023-12-28] MEDS ORDERED: ACETAMINOPHEN 1,000 MG/100 ML 1,000 MG/100 ML BAG IV ONE (10:37)
[2023-12-28] MEDS ORDERED: KETOROLAC 30 MG/ML VIAL ONE (10:42)
[2023-12-28] MEDS ORDERED: ATROPINE ABBOJECT 1 MG/10 ML SYRINGE IVP PRN (11:07)
[2023-12-28] MEDS ORDERED: NALOXONE 0.4 MG/ML VIAL IVP PRN ×3 (11:07→11:47)
[2023-12-28] MEDS ORDERED: HYDROCORTISONE 1% CREAM 28 GM TUBE TOP PRN (11:07)
[2023-12-28] MEDS ORDERED: WITCH HAZEL/GLYCERIN 1 PAD TOP PRN (11:07)
[2023-12-28] MEDS ORDERED: fentaNYL 100 MCG/2 ML VIAL IVP PRN (11:07)
[2023-12-28] MEDS ORDERED: HYDROmorphone 0.5 MG/0.5 ML SYRINGE IVP PRN (11:07)
[2023-12-28] MEDS ORDERED: OXYTOCIN/SODIUM CHLORIDE 500 ML IV PRN (11:07)
[2023-12-28] MEDS ORDERED: MORPHINE 2 MG/ML CARPUJECT IVP PRN (11:07)
--- NOTE | 2023-12-28 11:28 | OPERATIVE REPORT ---
Operative Report General Admit Date: 12/25/23 Procedure Data: Operation Date: 12/28/23 09:52 Proposed Procedures p Section(Not Applicable) - Rosio Keith DO Actual Procedures p Section(Not Applicable) - Rosio Keith DO Pre-Op Diagnosis: failure to progress Anesthesia Type Spinal Case Staff Anesthesia Provider: Nannette Barnhart Times Into Recovery: 12/28/23 11:00 Procedure Start: 12/28/23 10:17 Procedure End: 12/28/23 10:50 Time out: 12/28/23 10:15 Tourniquet Tourniquet #: Tourniquet Site Padding: Pressure: Applied by: Time up #1: Time Down #1: Time Up #2: Time Down #2: Pre-Op Diagnosis: IUP 37.5w, Fail IOL for pre-e/failure to progress (3cm),prolo nged ROM (24h) Post Op Diagnosis: IUP 37.5w, Fail IOL for pre-e/failure to progress (3cm),prolonged ROM (24h) Procedure Note Estimated Blood Loss (ml): 800 Pathology: None Cord blood collected Indications: IUP 37.5w, Fail IOL for pre-e/failure to progress (3cm),prolonged ROM (24h) Findings: Viable female Apgars 7/9 3474g Normal appearing uterus, tubes, ovaries Complications: None Other Other Information/Narrative: Epidural replaced with Spinal. Irving catheter already in place. Patient was prepped and draped in the usual sterile fashion in the supine position with a leftward tilt. A Pfannensteil incision was made. The incision was carried down to the fascia with sharp dissection and cautery. The fascia was incised transversely and dissected off the rectus muscle using sharp dissection. Electrocautery was used for hemostasis. The peritoneum was opened taking care not to injure the bladder. The vesicouterine peritoneum was dissected off the lower uterine segment. The lower segment was assessed and a low transverse incision was made. The uterine incision was extended bluntly. The fetus was presenting as a vertex, RASHAWN. The head was delivered without difficulty and the rest of the body followed easily. After one minute of delayed cord clamping, the cord was clamped twice and cut and [facility], awaiting [facility] pediatric) staff. Cord blood collected. The placenta was then delivered with assistance. The uterus was explored and was empty of all tissue. The uterus was exteriorized for better visualization. The uterine incision was then closed with 0-Monocryl. Tubes and ovaries were examined and appeared normal. The fascia was closed with 0-Vicryl in a running unlocked fashion. Subcutaneous layer reapproximated with 2-0 Chromic. The skin was closed with 3-0 Monocryl. At the end of the procedure all sponges, instruments, and sharps were counted and correct. Estimated blood loss was 800cc. The patient and baby were taken to the recovery in stable condition. The female baby weighed grams, and Apgars were (7) and (9) at 1 and 5 minutes respectively.
--- NOTE | 2023-12-28 11:37 | DELIVERY NOTE ---
Delivery Note Labor Labor: positive Augmented by oxytocin Infant Delivery Method Infant Delivery Method: positive Primary Cervical Ripening Method Cervical Ripening Method: positive Misoprostil Presentation Presentation: positive Vertex and RASHAWN - right occiput anterior Nuchal Cord Nuchal Cord: positive None Amniotic Fluid Description Amniotic Fluid Description: positive Clear Delivery Outcome Delivery Outcome: positive Livebirth [place]: positive Bulb syringe, Stimulated, Warmed, [place] used and Warmer used [place] sex: positive Female Cord Cord: positive 3 vessels Placenta Placenta: positive Intact and Expressed Estimated Blood Loss Estimated Blood Loss (in cc): 800 Delivery Comments (Free Text/Narrative) Delivery Comments (Free Text/Narrative): See primary section operative report.
[2023-12-28] MEDS ORDERED: NALBUPHINE 10 MG/ML AMP IVP PRN (11:47)
--- NOTE | 2023-12-28 11:47 | ANESTHESIA POST OP EVALUATION ---
Anesthesia Post Eval Post Anesthesia Eval Vitals: Last Vital Signs Temp 36.5 C 12/28/23 11:00 Pulse 76 12/28/23 11:34 Resp 22 12/28/23 11:34 BP 141/73 H 12/28/23 11:34 Pulse Ox 95 12/28/23 11:34
[2023-12-28] MEDS ORDERED: NIFEdipine ER 30 MG TABLET PO SCH (12:00)
[2023-12-28] MEDS ORDERED: LACTATED RINGERS 1,000 ML IV SCH (12:00)
[2023-12-28] MEDS: LACTATED RINGERS 1,000 ML IV SCH (16:13)
[2023-12-28] MEDS: KETOROLAC 30 MG/ML VIAL IVP SCH (16:31)
[2023-12-28] MEDS: ACETAMINOPHEN 500 MG TABLET PO SCH (18:50)
[2023-12-28] MEDS: DOCUSATE SODIUM 100 MG CAPSULE PO SCH (20:41)
[2023-12-28] MEDS: oxyCODONE 5 MG TABLET PO PRN (21:41)
[2023-12-29] MEDS: IBUPROFEN 600 MG TABLET PO SCH (04:32)
[2023-12-29] MEDS ORDERED: IBUPROFEN 600 MG TABLET PO ONE (04:32)
--- NOTE | 2023-12-29 08:13 | PROVIDER PROGRESS NOTE ---
Assessment/Plan Problem List (1) Delivery by section: Assessment/Plan: Routine postop care (2) Preeclampsia: Qualifiers: Trimester: third trimester Qualified Code(s): O14.93 - Unspecified pre- eclampsia, third trimester Assessment/Plan: Blood pressure normal, most recently 112/61. No severe range pressures since delivery. Magnesium sulfate was not continued after delivery. It has now been nearly 24 hours since delivery. A.M. labs pending (3) Single live : Assessment/Plan: Anticipate discharge in 1 to 2 days. (4) Maternal excessive weight gain: Qualifiers: Trimester: third trimester Qualified Code(s): O26.03 - Excessive weight gain in , third trimester Assessment/Plan: Stable (5) Anxiety: Assessment/Plan: Stable (6) Vulvodynia: Assessment/Plan: Stable (7) Constipation: Qualifiers: Constipation type: drug induced constipation Qualified Code(s): K59.03 - Drug induced constipation Assessment/Plan: Several days of opioids followed by surgery. Miralax daily with stool softener. Current Meds Current Meds: Current Medications Generic Name Dose Route Start Last Admin Trade Name Freq PRN Reason Stop Dose Admin Acetaminophen 1,000 mg 12/28/23 12:00 12/29/23 03:38 Acetaminophen 500 Mg Tablet PO 1,000 mg Q8H ANNIKA Administration Calcium Carbonate/Glycine 1,000 mg 12/27/23 22:23 12/27/23 22:37 Calcium Carbonate Chew 500 Mg Tablet PO 1,000 mg QID PRN Administration Heartburn Cyclobenzaprine HCl 10 mg 12/25/23 20:25 12/27/23 08:21 Cyclobenzaprine 10 Mg Tablet PO 10 mg TID PRN Administration Spasms Docusate Sodium 200 mg 12/28/23 21:00 12/28/23 20:41 Docusate Sodium 100 Mg Capsule PO 200 mg BID ANNIKA Administration Fentanyl 50 mcg 12/25/23 20:20 Fentanyl 100 Mcg/2 Ml Vial IVP Q1H PRN Severe Pain (Level 7-10) Hydrocortisone 1 applic 12/28/23 11:07 Hydrocortisone 1% Cream 28 Gm Tube TOP QID PRN Hemorrhoids Tranexamic Acid 1,000 mg in 100 mls @ 600 mls/hr 12/25/23 20:15 Tranexamic 1,000 Mg/100ml-Nacl IV Q30M PRN EBL >1200mL and within 3hr Magnesium Sulfate 20 gm in 500 mls @ 50 mls/hr 12/25/23 20:25 12/28/23 08:20 Magnesium Sulf 20 G/500 Ml Bag IV 0 gm/hr .Q10H ANNIKA 0 mls/hr Infusion 2 GM/HR Lactated Ringer's 1,000 mls @ 100 mls/hr 12/28/23 12:00 12/28/23 21:30 Lr IV Infused .Q10H ANNIKA Infusion Ibuprofen 600 mg 12/29/23 12:00 12/29/23 04:32 Ibuprofen 600 Mg Tablet PO 600 mg Q6HR ANNIKA Administration Metoclopramide HCl 10 mg 12/26/23 12:34 12/26/23 14:01 Metoclopramide 10 Mg Tablet PO 10 mg TID PRN Administration nausea Misoprostol 600 mcg 12/25/23 20:15 Misoprostol 200 Mcg Tablet BC .ONCE PRN Hemorrhage Misoprostol 800 mcg 12/25/23 20:15 Misoprostol 200 Mcg Tablet DE .ONCE PRN Hemorrhage Nalbuphine HCl 5 mg 12/28/23 11:47 Nalbuphine 10 Mg/Ml Amp IVP Q4H PRN ITCHING Naloxone HCl 0.4 mg 12/28/23 11:07 Naloxone 0.4 Mg/Ml Vial IVP .ONCE PRN Opioid overdose Naloxone HCl 0.1 mg 12/28/23 11:47 Naloxone 0.4 Mg/Ml Vial IVP 12/29/23 11:47 Q2M PRN RR < 8 Ondansetron HCl 4 mg 12/25/23 20:20 12/28/23 16:31 Ondansetron 4 Mg/2 Ml Vial IVP 4 mg Q4HR PRN Administration Nausea / Vomiting Ondansetron HCl 4 mg 12/25/23 20:20 Ondansetron Odt 4 Mg Tablet TL Q4HR PRN Nausea / Vomiting Oxycodone HCl 5 - 10 mg 12/25/23 20:25 12/29/23 06:15 Oxycodone 5 Mg Tablet PO 5 mg Q4HR PRN Administration Moderate Pain (Level 4-6) Oxycodone HCl 5 mg 12/28/23 11:07 12/28/23 21:41 Oxycodone 5 Mg Tablet PO 5 mg Q6H PRN Administration Severe Pain 6 -10 Oxytocin 10 unit 12/27/23 22:34 Oxytocin 10 Unit/Ml Vial IM .ONCE PRN Step One if no IV access. Witch Joceline/Glycerin 1 pad 12/28/23 11:07 Witch Joceline/Glycerin 1 Pad TOP PRN PRN Itching Zolpidem Tartrate 5 mg 12/25/23 20:20 12/26/23 00:12 Zolpidem 5 Mg Tablet PO 5 mg QPM PRN Administration Insomnia Lab Result 12/28/23 06:19 12/28/23 06:19 Subjective Subjective Patient Reports: Other (Subjective Patient reports she is doing well. Lochia appropriate. Denies heavy bleeding. Ambulating. Pelvic and abdominal pain well- controlled. Tolerating oral intake. Diet: Regular. Voiding without difficulty. Passing flatus. Denies BM. Patient is bonding with baby in room Breast feeding going well) Objective Vital Signs: Vital Signs - 24 hr 12/28/23 11:00 12/28/23 11:05 12/28/23 11:10 Temperature 36.5 C Temperature Source Pulse Rate 82 78 87 Pulse Rate [Radial] Respiratory Rate 16 14 23 Blood Pressure 99/67 117/72 104/67 Blood Pressure [Right Brachial artery] O2 Saturation 96 96 96 Pain Intensity Pain Intensity [Head] Pain Intensity [Medial Abdomen lower qaudrant] Pain Intensity [Right Abdomen lower qaudrant] 12/28/23 11:16 12/28/23 11:20 12/28/23 11:34 Temperature Temperature Source Pulse Rate 83 80 76 Pulse Rate [Radial] Respiratory Rate 14 21 22 Blood Pressure 117/68 129/84 141/73 H Blood Pressure [Right Brachial artery] O2 Saturation 95 95 95 Pain Intensity Pain Intensity [Head] Pain Intensity [Medial Abdomen lower qaudrant] Pain Intensity [Right Abdomen lower qaudrant] 12/28/23 11:43 12/28/23 12:15 12/28/23 12:45 Temperature 36.1 C L Temperature Source Oral Pulse Rate 70 Pulse Rate [Radial] 63 Respiratory Rate 19 15 Blood Pressure 125/71 Blood Pressure [Right Brachial artery] 109/79 121/77 O2 Saturation 95 98 Pain Intensity Pain Intensity [Head] Pain Intensity [Medial Abdomen lower qaudrant] Pain Intensity [Right Abdomen lower qaudrant] 12/28/23 13:05 12/28/23 13:57 12/28/23 16:17 Temperature 36.6 C Temperature Source Oral Pulse Rate Pulse Rate [Radial] 81 Respiratory Rate 17 17 Blood Pressure Blood Pressure [Right Brachial artery] 134/79 H O2 Saturation 97 97 Pain Intensity Pain Intensity [Head] 4 Pain Intensity [Medial Abdomen lower qaudrant] Pain Intensity [Right Abdomen lower qaudrant] 3 12/28/23 16:24 12/28/23 16:31 12/28/23 17:19 Temperature 36.1 C L Temperature Source Oral Pulse Rate Pulse Rate [Radial] 72 Respiratory Rate 18 Blood Pressure Blood Pressure [Right Brachial artery] 118/69 O2 Saturation 100 Pain Intensity 4 6 Pain Intensity [Head] Pain Intensity [Medial Abdomen lower qaudrant] Pain Intensity [Right Abdomen lower qaudrant] 12/28/23 18:50 12/28/23 19:10 12/28/23 19:17 Temperature Temperature Source Pulse Rate Pulse Rate [Radial] Respiratory Rate Blood Pressure Blood Pressure [Right Brachial artery] O2 Saturation Pain Intensity 4 4 4 Pain Intensity [Head] Pain Intensity [Medial Abdomen lower qaudrant] Pain Intensity [Right Abdomen lower qaudrant] 12/28/23 19:18 12/28/23 20:30 12/28/23 20:53 Temperature 36.5 C Temperature Source Temporal Artery Scan Pulse Rate Pulse Rate [Radial] 75 Respiratory Rate 18 Blood Pressure Blood Pressure [Right Brachial artery] 124/73 O2 Saturation 100 Pain Intensity 4 Pain Intensity [Head] Pain Intensity [Medial Abdomen lower qaudrant] 4 Pain Intensity [Right Abdomen lower qaudrant] 12/28/23 21:41 12/28/23 22:35 12/29/23 00:45 Temperature 36.6 C Temperature Source Temporal Artery Scan Pulse Rate Pulse Rate [Radial] 71 Respiratory Rate 18 Blood Pressure Blood Pressure [Right Brachial artery] 112/61 O2 Saturation 98 Pain Intensity 5 2 Pain Intensity [Head] Pain Intensity [Medial Abdomen lower qaudrant] Pain Intensity [Right Abdomen lower qaudrant] 12/29/23 03:38 12/29/23 03:39 12/29/23 04:32 Temperature Temperature Source Pulse Rate Pulse Rate [Radial] Respiratory Rate Blood Pressure Blood Pressure [Right Brachial artery] O2 Saturation Pain Intensity 6 6 6 Pain Intensity [Head] Pain Intensity [Medial Abdomen lower qaudrant] Pain Intensity [Right Abdomen lower qaudrant] 12/29/23 06:15 Temperature Temperature Source Pulse Rate Pulse Rate [Radial] Respiratory Rate Blood Pressure Blood Pressure [Right Brachial artery] O2 Saturation Pain Intensity 7 Pain Intensity [Head] Pain Intensity [Medial Abdomen lower qaudrant] Pain Intensity [Right Abdomen lower qaudrant] Oxygen O2 Source Room air I&O (Last 24 Hrs): Intake and Output Totals x24h 12/28/23 12/29/23 12/30/23 05:59 05:59 05:59 Intake Total 3496 / 3496 2541 / 2541 Output Total 3700 / 3700 1015 / 1015 1400 / 1400 Balance -204 / -204 1526 / 1526 -1400 / -1400 Comments/Notes: General: Alert, oriented, no apparent distress. Cardiovascular: Regular rate. Regular rhythm. Lungs: No increased work of breathing. Abdomen: Uterus firm. Below umbilicus. No guarding or rebound. Extremities: No pain on palpation. No cords palpated. Distal pulses intact. Incision: Bandage in place. Results Results: Laboratory Results WBC 13.1 x10^3/uL (4.8-10.8) H 12/28/23 06:19 RBC 3.93 10^6/uL (4.20-5.40) L 12/28/23 06:19 Hgb 12.7 g/dL (12.0-16.0) 12/28/23 06:19 Hct 37.6 % (37.0-47.0) 12/28/23 06:19 MCV 95.7 fL (81.0-99.0) 12/28/23 06:19 MCH 32.3 pg (27.0-31.0) H 12/28/23 06:19 MCHC 33.8 g/dL (32.0-36.0) 12/28/23 06:19 RDW 13.6 % (12.0-15.0) 12/28/23 06:19 Plt Count 158 10^3/uL (130-450) 12/28/23 06:19 MPV 11.4 fL (7.9-10.8) H 12/28/23 06:19 Neut # (Auto) 10.2 10^3/uL (1.5-6.6) H 12/28/23 06:19 Lymph # (Auto) 1.7 10^3/uL (1.5-3.5) 12/28/23 06:19 [place] # (Auto) 0.9 10^3/uL (0.0-1.0) 12/28/23 06:19 Eos # (Auto) 0.2 10^3/uL (0.0-0.7) 12/28/23 06:19 Baso # (Auto) 0.0 10^3/uL (0.0-0.1) 12/28/23 06:19 Absolute Nucleated RBC 0.00 x10^3/uL 12/28/23 06:19 Nucleated RBC % 0.0 /100WBC 12/28/23 06:19 Sodium 133 mmol/L (135-145) L 12/28/23 06:19 Potassium 3.6 mmol/L (3.5-4.5) 12/28/23 06:19 Chloride 104 mmol/L (101-111) 12/28/23 06:19 Carbon Dioxide 23 mmol/L (21-32) 12/28/23 06:19 Anion Gap 6.0 (6-13) 12/28/23 06:19 BUN 4 mg/dL (6-20) L 12/28/23 06:19 Creatinine 0.6 mg/dL (0.6-1.3) 12/28/23 06:19 Estimated GFR (MDRD) 120 (>89) 12/28/23 06:19 Glucose 88 mg/dL (74-104) 12/28/23 06:19 Calcium 7.5 mg/dL (8.5-10.3) L 12/28/23 06:19 Total Bilirubin 0.6 mg/dL (0.2-1.0) 12/28/23 06:19 AST 10 IU/L (10-42) 12/28/23 06:19 ALT 7 IU/L (10-60) L 12/28/23 06:19 Alkaline Phosphatase 112 IU/L (42-121) 12/28/23 06:19 Total Protein 5.3 g/dL (6.4-8.9) L 12/28/23 06:19 Albumin 2.9 g/dL (3.2-5.5) L 12/28/23 06:19 Globulin 2.4 g/dL (2.1-4.2) 12/28/23 06:19 Albumin/Globulin Ratio 1.2 (1.0-2.2) 12/28/23 06:19 Urine Creatinine 40.4 mg/dL 12/25/23 15:51 Ur Total Protein Timed 9 mg/dL 12/25/23 15:51 Protein/Creatinin Ratio 0.2 (<=0.2) 12/25/23 15:51 Blood Type A POSITIVE 12/25/23 20:45 Antibody Screen NEGATIVE 12/25/23 20:45 Crossmatch IS Only See Detail 12/25/23 20:45 Procedures Procedures: Procedures OTHER APPENDECTOMY (01/28/13) Current Medications Current Medications Current Medications: Current Medications Generic Name Dose Route Start Last Admin Trade Name Freq PRN Reason Stop Dose Admin Acetaminophen 1,000 mg 12/28/23 12:00 12/29/23 03:38 Acetaminophen 500 Mg Tablet PO 1,000 mg Q8H ANNIKA Administration Calcium Carbonate/Glycine 1,000 mg 12/27/23 22:23 12/27/23 22:37 Calcium Carbonate Chew 500 Mg Tablet PO 1,000 mg QID PRN Administration Heartburn Cyclobenzaprine HCl 10 mg 12/25/23 20:25 12/27/23 08:21 Cyclobenzaprine 10 Mg Tablet PO 10 mg TID PRN Administration Spasms Docusate Sodium 200 mg 12/28/23 21:00 12/28/23 20:41 Docusate Sodium 100 Mg Capsule PO 200 mg BID ANNIKA Administration Fentanyl 50 mcg 12/25/23 20:20 Fentanyl 100 Mcg/2 Ml Vial IVP Q1H PRN Severe Pain (Level 7-10) Hydrocortisone 1 applic 12/28/23 11:07 Hydrocortisone 1% Cream 28 Gm Tube TOP QID PRN Hemorrhoids Tranexamic Acid 1,000 mg in 100 mls @ 600 mls/hr 12/25/23 20:15 Tranexamic 1,000 Mg/100ml-Nacl IV Q30M PRN EBL >1200mL and within 3hr Magnesium Sulfate 20 gm in 500 mls @ 50 mls/hr 12/25/23 20:25 12/28/23 08:20 Magnesium Sulf 20 G/500 Ml Bag IV 0 gm/hr .Q10H ANNIKA 0 mls/hr Infusion 2 GM/HR Lactated Ringer's 1,000 mls @ 100 mls/hr 12/28/23 12:00 12/28/23 21:30 Lr IV Infused .Q10H ANNIKA Infusion Ibuprofen 600 mg 12/29/23 12:00 12/29/23 04:32 Ibuprofen 600 Mg Tablet PO 600 mg Q6HR ANNIKA Administration Metoclopramide HCl 10 mg 12/26/23 12:34 12/26/23 14:01 Metoclopramide 10 Mg Tablet PO 10 mg TID PRN Administration nausea Misoprostol 600 mcg 12/25/23 20:15 Misoprostol 200 Mcg Tablet BC .ONCE PRN Hemorrhage Misoprostol 800 mcg 12/25/23 20:15 Misoprostol 200 Mcg Tablet DE .ONCE PRN Hemorrhage Nalbuphine HCl 5 mg 12/28/23 11:47 Nalbuphine 10 Mg/Ml Amp IVP Q4H PRN ITCHING Naloxone HCl 0.4 mg 12/28/23 11:07 Naloxone 0.4 Mg/Ml Vial IVP .ONCE PRN Opioid overdose Naloxone HCl 0.1 mg 12/28/23 11:47 Naloxone 0.4 Mg/Ml Vial IVP 12/29/23 11:47 Q2M PRN RR < 8 Ondansetron HCl 4 mg 12/25/23 20:20 12/28/23 16:31 Ondansetron 4 Mg/2 Ml Vial IVP 4 mg Q4HR PRN Administration Nausea / Vomiting Ondansetron HCl 4 mg 12/25/23 20:20 Ondansetron Odt 4 Mg Tablet TL Q4HR PRN Nausea / Vomiting Oxycodone HCl 5 - 10 mg 12/25/23 20:25 12/29/23 06:15 Oxycodone 5 Mg Tablet PO 5 mg Q4HR PRN Administration Moderate Pain (Level 4-6) Oxycodone HCl 5 mg 12/28/23 11:07 12/28/23 21:41 Oxycodone 5 Mg Tablet PO 5 mg Q6H PRN Administration Severe Pain 6 -10 Oxytocin 10 unit 12/27/23 22:34 Oxytocin 10 Unit/Ml Vial IM .ONCE PRN Step One if no IV access. Witch Joceline/Glycerin 1 pad 12/28/23 11:07 Witch Joceline/Glycerin 1 Pad TOP PRN PRN Itching Zolpidem Tartrate 5 mg 12/25/23 20:20 12/26/23 00:12 Zolpidem 5 Mg Tablet PO 5 mg QPM PRN Administration Insomnia
[2023-12-29] MEDS: fentaNYL 100 MCG/2 ML VIAL IT ONE (08:34)
[2023-12-29] MEDS: MORPHINE PF 5 MG/10 ML VIAL IT ONE (08:35)
[2023-12-29 09:17] LABS: HCT - HEMATOCRIT 28.5 % (37.0-47.0); HGB - HEMOGLOBIN 9.6 g/dL (12.0-16.0); MEAN CORPUSCULAR HEMOGLOBIN 33.1 pg (27.0-31.0); MEAN CORPUSCULAR HGB CONC 33.7 g/dL (32.0-36.0); MEAN CORPUSCULAR VOLUME 98.3 fL (81.0-99.0); MEAN PLATELET VOLUME 11.6 fL (7.9-10.8); RED BLOOD COUNT 2.9 10^6/uL (4.20-5.40); RED CELL DISTRIBUTION WIDTH 13.6 % (12.0-15.0); WHITE BLOOD COUNT 12.3 x10^3/uL (4.8-10.8)
[2023-12-29 09:28] LABS: ALBUMIN 2.5 g/dL (3.2-5.5); ALBUMIN/GLOBULIN RATIO 1.3 (1.0-2.2); BILIRUBIN,TOTAL 0.2 mg/dL (0.2-1.0); CALCIUM 7.9 mg/dL (8.5-10.3); CREATININE 0.7 mg/dL (0.6-1.3); POTASSIUM 3.5 mmol/L (3.5-4.5); TOTAL PROTEIN 4.4 g/dL (6.4-8.9)
[2023-12-29] MEDS: polyethylene glycoL 3350 238 GM BOTTLE PO SCH (11:21)
--- NOTE | 2023-12-29 11:56 | PHARMACY PROGRESS NOTE ---
Best Possible Medication History Admit Date and Time: 12/25/23 [id number] Processed by: Pharmacy Medications reviewed in ED?: Yes Medication History completed: Yes Patient Interview: Completed Secondary Source(s): Pharmacy records and Insurance records [facility] Statement: As the person ultimately responsible for medication therapy, providers are able to order a medication from an existing home medication list in [facility] via the "Reconcile Routine" prior to Confirmation of that medication by bioinformatics support specialist. Such practice is discouraged except when the physician, in their clinical judgment, deems that a medical need exists for a medication without regard to previous use.
[2023-12-29] MEDS: SIMETHICONE CHEW 80 MG TABLET PO PRN (20:20)
[2023-12-30] MEDS ORDERED: polyethylene glycoL 3350 17 GM PACKET ONE (08:55)
[2023-12-30] MEDS: MAGNESIUM HYDROXIDE 2,400 MG/30 ML UDC PO SCH (14:02)
[2023-12-30 16:01] VITALS: O2SAT 98
--- NOTE | 2023-12-31 02:56 | PROVIDER PROGRESS NOTE ---
Subjective Subjective Subjective: Patient had a rough night and did not sleep well. Also had a screening with father the baby. Now intermittently crying. Lochia appropriate. Denies heavy bleeding. Ambulating without difficulty. Pelvic and abdominal pain well-controlled. Tolerating oral intake. Diet: Regular. Voiding without difficulty. Passing flatus. Denies BM. Very constipated. Patient is bonding with baby in room Breast feeding going okay, but not a large supply. Hesitant to start bottlefeeding, but encouraged as baby is losing weight Denies feeling lightheaded, dizzy or excessively fatigued. Current Medications Current Medications Current Medications: Current Medications Generic Name Dose Route Start Last Admin Trade Name Freq PRN Reason Stop Dose Admin Acetaminophen 1,000 mg 12/28/23 12:00 12/30/23 12:50 Acetaminophen 500 Mg Tablet PO 1,000 mg Q8H ANNIKA Administration Calcium Carbonate/Glycine 1,000 mg 12/27/23 22:23 12/27/23 22:37 Calcium Carbonate Chew 500 Mg Tablet PO 1,000 mg QID PRN Administration Heartburn Cyclobenzaprine HCl 10 mg 12/25/23 20:25 12/27/23 08:21 Cyclobenzaprine 10 Mg Tablet PO 10 mg TID PRN Administration Spasms Docusate Sodium 200 mg 12/28/23 21:00 12/30/23 08:59 Docusate Sodium 100 Mg Capsule PO 200 mg BID ANNIKA Administration Hydrocortisone 1 applic 12/28/23 11:07 Hydrocortisone 1% Cream 28 Gm Tube TOP QID PRN Hemorrhoids Ibuprofen 600 mg 12/29/23 12:00 12/30/23 12:51 Ibuprofen 600 Mg Tablet PO 600 mg Q6HR ANNIKA Administration Magnesium Hydroxide 2,400 mg 12/30/23 14:00 Magnesium Hydroxide 2,400 Mg/30 Ml Udc PO BID ANNIKA Metoclopramide HCl 10 mg 12/26/23 12:34 12/26/23 14:01 Metoclopramide 10 Mg Tablet PO 10 mg TID PRN Administration nausea Oxycodone HCl 5 - 10 mg 12/25/23 20:25 12/30/23 07:57 Oxycodone 5 Mg Tablet PO 5 mg Q4HR PRN Administration Moderate Pain (Level 4-6) Polyethylene Glycol 238 gm 12/29/23 09:00 12/30/23 10:39 Polyethylene Glycol 3350 238 Gm Bottle PO 238 gm DAILY ANNIKA Administration Simethicone 80 mg 12/29/23 20:06 12/30/23 04:43 Simethicone Chew 80 Mg Tablet PO 80 mg TID PRN Administration Gas Witch Joceline/Glycerin 1 pad 12/28/23 11:07 Witch Joceline/Glycerin 1 Pad TOP PRN PRN Itching Zolpidem Tartrate 5 mg 12/25/23 20:20 12/26/23 00:12 Zolpidem 5 Mg Tablet PO 5 mg QPM PRN Administration Insomnia Objective Vital Signs/Intake & Output Reviewed Vital Signs: Yes Vital Signs: Vital Signs x48h Temp Pulse Resp BP Pulse Ox 12/30/23 09:04 36.3 C L 93 H 16 127/71 97 Intake & Output: Intake & Output 12/28/23 12/29/23 12/30/23 12/31/23 05:59 05:59 05:59 05:59 Intake Total 3496 / 3496 2541 / 2541 Output Total 3700 / 3700 1015 / 1015 2700 / 2700 Balance -204 / -204 1526 / 1526 -2700 / -2700 Objective General Appearance: positive Other Lab Results 12/29/23 09:05 12/29/23 09:05 Other Results/Comments Other Results/Comments: General: Alert, oriented, no apparent distress, intermittent crying. Cardiovascular: Regular rate. Regular rhythm. Lungs: No increased work of breathing. Abdomen: Uterus firm. Below umbilicus. No guarding or rebound. Edema in lower belly Extremities: No pain on palpation. No cords palpated. Incision: Clean, dry, and intact. Assessment/Plan Problem List (1) Delivery by section: Impression: Routine postop care Anticipate discharge tomorrow (2) Preeclampsia: Impression: Blood pressure normal. Qualifiers: Trimester: third trimester Qualified Code(s): O14.93 - Unspecified pre- eclampsia, third trimester (3) Single live : Impression: Routine care Baby struggling with weight loss and had borderline bilirubin. Will recheck tomorrow morning to see if baby needs to be kept longer. (4) Anxiety: Impression: Discussed triggers and life stressors. Patient's mom came today and this is a source of support for her. Breast-feeding and possible jaundice are very concerning for her, understandably. Discussed a long hospitalization, lack of sleep, long induction followed by section are also contributing to her symptoms. (5) Constipation: Impression: Continue with bowel regimen medications. Passing gas. Encourage walking more. Qualifiers: Constipation type: drug induced constipation Qualified Code(s): K59.03 - Drug induced constipation
--- NOTE | 2023-12-31 06:04 | Discharge Summary ---
Discharge Summary Admit Date: 12/25/23 Discharge Date: 12/31/23 Discharging Provider: Turner Cottrell MD Code Status: Attempt Resuscitation DIAGNOSES Admission Diagnoses: 37 weeks gestation Preeclampsia with severe features Anxiety Discharge Diagnoses with Status of Each Condition: 37 weeks gestation Preeclampsia with severe features Opioid-induced constipation Anxiety Status post primary low-transverse section Delivery of live link HPI History of Present Illness: Subjective Patient reports she is doing well. Lochia appropriate. Denies heavy bleeding. Ambulating. Pelvic and abdominal pain well-controlled. Tolerating oral intake. Diet: Regular. Voiding without difficulty. Passing flatus. Had BM last night Patient is bonding with baby in room Breast feeding going well. Denies feeling lightheaded, dizzy or excessively fatigued. Did get 4 to 5 hours of sleep last night which is a big change for her. Objective General: Alert, oriented, no apparent distress. Cardiovascular: Regular rate. Regular rhythm. Lungs: No increased work of breathing. Abdomen: Uterus firm. Below umbilicus. No guarding or rebound. Extremities: No pain on palpation. No cords palpated. Distal pulses intact. [Incision: [Clean, dry, and intact.] [Bandage in place.]] HOSPITAL COURSE Hospital Course: Patient presented at 37 weeks gestation for induction of labor secondary to preeclampsia without severe features but eventually became with severe features and was started on magnesium sulfate during induction. She had a long induction process that was ultimately unsuccessful and underwent a primary low-transverse section. Surgery was uncomplicated, but she struggled after delivery with concern for wellbeing. She struggled with anxiety and mood about the long process, decrease milk supply, needing supplementary alimentation for baby, weight loss, concern for bilirubin and maternal constipation. Always things were understandable, but they all came to ahead on postop day 2, so we had a long discussion and elected to stay another night. After getting additional family support, she did feel much better on day 3. She was able to take a nap and rest and felt much better. Did have a bowel movement, but still feels full. Will continue pain control and bowel regimen at home. Plan to follow-up in 1 week with [facility] women's care. ALLERGIES Allergies Allergy/AdvReac Type Severity Reaction Status Date / Time No Known Drug Allergies Allergy Verified 12/27/23 11:58 MEDICATIONS Ambulatory Orders Medication Instructions Recorded Confirmed prenat.vits,shantal,orq-nzft-ixzny 1 tab PO DAILY 12/23/23 12/29/23 docusate sodium 100 mg capsule 100 - 200 mg (1 - 2 x 100 mg) PO 12/31/23 BID PRN Constipation #60 caps ibuprofen 600 mg tablet 600 mg PO Q6H PRN Pain #30 tabs 12/31/23 oxycodone 5 mg tablet 5 mg PO Q4H PRN Severe Pain #20 12/31/23 tabs LABS 12/29/23 09:05 12/29/23 09:05 FOLLOW UP Follow Up: In 1 week with [facility] women's care TIME SPENT Time Spent in Discharge (Minutes): 30 Discharge Plan Discharge Patient Disposition: Home, Self Care Condition: Stable Prescriptions: New oxycodone 5 mg tablet 5 mg PO Q4H PRN (Reason: Severe Pain) Qty: 20 0RF docusate sodium 100 mg capsule 100 - 200 mg PO BID PRN (Reason: Constipation) Qty: 60 1RF ibuprofen 600 mg tablet 600 mg PO Q6H PRN (Reason: Pain) Qty: 30 0RF Continued prenat.vits,shantal,qyr-cwgx-mfagn Tablet 1 tab PO DAILY Diet: Regular Print Language: Ukrainian Patient Instructions: Preeclampsia, Depression , C Section Dc Follow-up Care: Turner Cottrell MD [Provider Admit Priv/Credential] -
--- NOTE | 2023-12-31 13:13 | Labor Flowsheet ---
Labor Flowsheet Datetime Report Generated by CPN: 12/31/2023 13:12 Datetime: 12/28/2023 09:47 UTERINE ACTIVITY Monitor Mode: Internal Frequency (min): 3-7 Quality: Strong Duration (sec): 70-90 Pattern: Normal: <= 5 Contractions in 10 Minutes Resting Tone (Palpate): Relaxed FHR Baseline Rate : 120 Variability: Moderate 6-25 bpm Accelerations: 15X15 Decelerations: None Category: Category I Datetime: 12/28/2023 09:45 Pulse: 83 SpO2 (%): 97 LaborFlag: Labor Datetime: 12/28/2023 09:31 VITAL SIGNS NBP Sys/Maureen/Mean (mmHg): 126 : 76 : 88 Datetime: 12/28/2023 09:23 Anesthesia Comments: provider at bedside Datetime: 12/28/2023 09:04 Patient Care Comments: Theraworx/clipped Datetime: 12/28/2023 09:00 ASSESSMENT A Monitor Mode: External US Datetime: 12/28/2023 08:51 MEDICATIONS Pitocin (milliunits): Discontinued Datetime: 12/28/2023 08:45 Resting Tone IUP (mmHg): 5-10 Intensity IUP (mmHg): 55-70 [place] Units (mmHg): 250 FHR Baseline Changes: No Baseline Change Datetime: 12/28/2023 08:36 Patient Position/Activity: High Fowlers Datetime: 12/28/2023 08:28 Contraction Comments: IUPC zeroed Datetime: 12/28/2023 08:22 VAGINAL EXAM Dilatation (cm): 3.0 Effacement (%): 50 Station: -2 Exam by: Dr. Keith Vaginal Exam Comments: no change Datetime: 12/28/2023 08:20 Magnesium/Antihypertensives: Magnesium Sulfate Discontinued Datetime: 12/28/2023 08:17 COMMUNICATION Communication: Provider at Bedside Datetime: 12/28/2023 08:02 Temperature (C): 36.7 Datetime: 12/28/2023 07:50 Pain Type: Contraction Pain Location: Left Hip Pain Relief Measures: Comfort Measures Datetime: 12/28/2023 07:30 Hygiene: Chiquis Care Datetime: 12/28/2023 07:29 Medication Comments: oxycodone 5mg po given for HADDAD 6/10 Datetime: 12/28/2023 06:45 Oxygen Method: Room Air Datetime: 12/28/2023 06:00 Pitocin Checklist: At Least 1 Acceleration of 15 bpm x 15 Seconds in 30 Minutes or Adequate Variabi lity; No More than 1 Late Deceleration Occurred in Past 30 Minutes; No More than 2 Variable Decelerat ions > 60 Seconds in Duration and decreasing >60 bpm in 30 minutes; No More than 5 Uterine Contractio ns in 10 Minutes for any 20 Minute Interval; Uterus Palpates Soft between Contractions Datetime: 12/28/2023 04:56 Monitor Interventions for UA: [place] Adjusted Datetime: 12/28/2023 03:31 Stage of : Labor Respirations: 17 Temperature Route: Oral Datetime: 12/27/2023 22:21 Communication Comments: WET [employer]ER called: pt can have a light solid while pit is off Datetime: 12/27/2023 17:30 MATERNAL ASSESSMENT Level of Consciousness: Alert DTR's/Clonus: DTRs 2+ Headache: Generalized Breath Sounds, Left: Clear and Equal Breath Sounds, Right: Clear and Equal Nausea/Vomiting: Denies RUQ Epigastric Pain: Denies Datetime: 12/27/2023 16:04 Vaginal Bleeding: None Cervix, Consistency: Soft Cervix, Position: Midposition Datetime: 12/27/2023 10:26 I/O Interventions: Clear Liquids Given Datetime: 12/27/2023 10:25 Monitor Interventions for FHR: Ultrasound Adjusted Datetime: 12/27/2023 10:17 Membrane Status: Ruptured Membranes Rupture Method: Artificial Amniotic Fluid Color: Clear Amniotic Fluid Amount: Moderate Amniotic Fluid Odor: Normal Membrane Comments: Per Datetime: 12/27/2023 08:00 PAIN Pain Scale: 7 Pain Presence: Constant Maternal Comments: Pt recieved 5mg oxycodone for H/A Datetime: 12/27/2023 06:21 Provider Notified (Name): KGiovaniHilario Notification Reason: Status Update; Status; Labor Status; Uterine Activity; Pain Datetime: 12/27/2023 03:04 Pain Coping: Sleeping Datetime: 12/26/2023 22:19 Actions for Decelerations: IV Bolus Comments: 200ml IV bolus completed Datetime: 12/26/2023 22:00 Anesthesia Level Check: T10- Umbilicus Datetime: 12/26/2023 21:11 Epidural Procedure: Test Dose Datetime: 12/26/2023 20:49 Tocolytics: Terbutaline 0.25mg Subcutaneous Datetime: 12/26/2023 20:37 Comfort Measures: Breathing/Relaxation; Coaching; Back Rub Given; Hot/Cold Pack; Family Support Datetime: 12/26/2023 20:06 PROCEDURE TIME OUT Procedure Type: epiduarl and version Procedure Verify: Correct Patient Identity; Correct Side and Site are Marked; Accurate Procedure Co nsent Form; Agreement on Procedure to be Done; Correct Patient Position; Relevant Images and Results are Properly Labeled and Displayed; Addressed Need to Administer Antibiotics or Fluids for Irrigation ; Safety Precautions Based on Patient History or Medication Use ANESTHESIA Anesthesia Plans: Epidural Epidural Positioning: Sitting Datetime: 12/26/2023 14:01 Pain Goal: 4 Analgesics/Sedatives: Tylenol (mg) @ 975 Cervical Ripening Agents: Cytotec @ Datetime: 12/26/2023 08:01 Pain Assessment Comments: Patient declines additional pain medication at this time. Datetime: 12/25/2023 23:25 TEACHING Instructional Method: Verbal; Family/Support Person Instructed; Verbalized Understanding Plan of Care: Plan of Care Discussed Unit Routine: [place] to Room; Call Tam[place]o; Bed; Visiting Policy; Waiting Areas; Security; Phon e/Cell Phone Use; Photography; Unit Personnel; Handwashing; Monitoring; IV Pumps Labor/Induction: Cervical Ripening Related: Nutrition; Activity and Rest Datetime: 12/25/2023 20:46 PATIENT CARE IV/Blood Work: IV Started; Labs Drawn with IV Start; IV Bag Number @ 1 Datetime: 12/25/2023 19:54 Provider Reviewed Strip: Yes Datetime: 12/25/2023 16:20 PRE-INDUCTION CHECKLIST Orders on Chart: Yes H Record Available: Yes Indication Charted: Yes Gestational Age Documented: Yes Consent Signed and on Chart: Yes Provider with C/S Priv Aware: Yes Status of Cervix Documented: Yes Presentation Documented: Yes 30min of Monitoring Prior: Yes 2 Accels of 15X15 Present: Yes No Late Decels Present: No Less than 2 Variable Decels: Yes Pt Meets Criteria for Induction: Yes
== END 2023-12-31 11:30 | disposition home or self-care (01) | DRG 788 ==
LOC: WFO 15:11 → FBP 15:14
PROVIDERS: ADMIT Obstetrics & Gynecology; ATTEND Obstetrics & Gynecology
DX: O26.03 Excessive weight gain in pregnancy, third trimester; O99.344 Other mental disorders complicating childbirth; O99.892 Other specified diseases and conditions complicating childbirth; N94.819 Vulvodynia, unspecified; O99.62 Diseases of the digestive system complicating childbirth; O32.1XX0 Maternal care for breech presentation, not applicable or unspecified; F41.9 Anxiety disorder, unspecified; Z3A.37 37 weeks gestation of pregnancy; O61.0 Failed medical induction of labor; K59.03 Drug induced constipation; O14.14 Severe pre-eclampsia complicating childbirth; T40.605A Adverse effect of unspecified narcotics, initial encounter; Z37.0 Single live birth; O32.4XX0 Maternal care for high head at term, not applicable or unspecified; F90.9 Attention-deficit hyperactivity disorder, unspecified type; O62.0 Primary inadequate contractions